=== PATIENT | female | born 1945 | race Caucasian/White ===

== ENCOUNTER 2017-05-11 07:35 | Emergency (ER) | payer OTHER, MEDICARE ==
[~2017-05-11] VITALS: Ht 167.6 cm; Wt 74.5 kg
[~2017-05-11 07:35] MED LIST: DOCUSATE SODIU100 MG PO; FISH OIL 1,0001 EAC7 PO; HYDROCHLOROTH12.5 M3 PO; HYDROCODON-ACE1 EAC7 PO; K-DUR20 MEQ PO; LEVOTHYROXINE50 MCG PO; LO-DOSE ASPIRIN81 M1 PO; MILK OF MAGN PO; ZOFRAN4 MG PO
[2017-05-11] MEDS ORDERED: LIDODERM 5% P1 PATCH TD (09:05)
[2017-05-11] MEDS ORDERED: MOTRIN600 MG PO (09:05)
[2017-05-11] MEDS ORDERED: FLEXERIL10 MG PO (09:05)
[2017-05-11] MEDS ORDERED: PREDNISONE20 MG PO (09:05)
[2017-05-11 10:10] VITALS: BP 159/84
== END 2017-05-11 10:10 | disposition home or self-care (01) ==
LOC: EME → EDBD 07:35 → EME 07:35
DX: S13.4XXA Sprain of ligaments of cervical spine, initial encounter (principal); V89.2XXA Person injured in unspecified motor-vehicle accident, traffic, initial encounter; I10 Essential (primary) hypertension; Z79.82 Long term (current) use of aspirin; Z88.2 Allergy status to sulfonamides
CPT/HCPCS: 72040; 99281; 99284; J1885